=== PATIENT | female | born 1980 | race Caucasian/White ===

== ENCOUNTER 2018-07-05 10:44 | Observation (INO) ==
--- NOTE | 2018-07-04 21:02 | MH ---
cc: Declan Brown MD DATE OF ADMISSION: 07/05/2018 ADMITTING DIAGNOSIS: Dysmenorrhea. CHIEF COMPLAINT: Pelvic pain with large uterine fibroid. HISTORY OF PRESENT ILLNESS: A 38-year-old white female, para 1-0-0-1 with having evaluation for GI issues and low back pain and has reported more back pain and dysmenorrhea with her cycle over the last few months. A pelvic ultrasound on 05/08/2018 showed a large 6.35 cm mass off the fundus of the uterus. Endometrial thickness was normal. Right ovary shows a small cyst. Left ovary shows small cyst. Due to the progressive nature of the back pain refractory to medical therapy, the patient elected to proceed with a hysterectomy. PAST MEDICAL HISTORY: She had in 2008 for failure to progress. MEDICATIONS: Vitamins. ALLERGIES: NONE. TRANSFUSIONS: None. SERIOUS MEDICAL ILLNESSES: History of renal stones in the past. REVIEW OF SYSTEMS: Negative. SOCIAL HISTORY: She is . She works for [employer]. Alcohol, tobacco and drugs are none. FAMILY HISTORY: Noncontributory. REVIEW OF SYSTEMS: Negative. PHYSICAL EXAMINATION: GENERAL: This is a well-nourished, well-developed white female. VITAL SIGNS: Stable. HEENT: Normal. CHEST: Clear. HEART: Regular rate. BREASTS: Symmetrical. ABDOMEN: Benign. PELVIC: Normal external genitalia and BUS. Vagina is normal. Cervix normal. Uterus enlarged, about 14-week size. Adnexa nonpalpable. ASSESSMENT: She is now admitted for laparoscopy with planned LASH procedure, bilateral salpingectomy, possible LILLIANA, possible BSO if indicated. While in the office, the surgery, the risks and benefits and complications were explained and accepted. MD MAITE Dickinson/tylor , 07:33 PM , 07:40 PM
[2018-07-05] MEDS ORDERED: Metoprolol Tartrate 25 MG Tablet PO ONE (11:45)
[2018-07-05] MEDS ORDERED: Chlorhexidine Gluconate 2% 1 Pack (2 Cloths) TOPICAL ONE (11:45)
[2018-07-05] MEDS ORDERED: Sodium Chlor 0.9% Inj 500 ML IV.CONT ONE (11:45)
[2018-07-05] MEDS ORDERED: ceFAZolin 2 GM IV; once IV.SIG ONE (12:00)
[2018-07-05] MEDS ORDERED: Bupivacaine Liposomal PF 1.3% Inj 20 ML Vial ONE (12:42)
[2018-07-05] MEDS ORDERED: Lidocaine PF 1% Inj 5 ML Syringe OTHER ONE (13:00)
[2018-07-05] MEDS ORDERED: Glycopyrrolate Inj 1 MG/5 ML Syringe IV.PUSH ONE (13:00)
[2018-07-05] MEDS ORDERED: Neostigmine Inj 5 MG/5 ML Syringe IV.PUSH ONE (13:00)
[2018-07-05] MEDS ORDERED: fentaNYL Citrate Inj 100 MCG/2 ML Ampul ONE (13:56)
[2018-07-05] MEDS ORDERED: Ketorolac Inj 30 MG/ML (IVP) Vial IV.PUSH ONE (14:00)
[2018-07-05] MEDS ORDERED: Ketorolac Inj 30 MG/ML (IVP) Vial IM ONE (14:00)
[2018-07-05] MEDS ORDERED: HYDROmorphone PF Inj 1 MG/ML Ampul IV.PUSH PRN (14:14)
[2018-07-05] MEDS ORDERED: Zolpidem Tartrate 5 MG Tablet PO PRN (14:14)
[2018-07-05] MEDS ORDERED: *Meperidine Inj 25 MG/ML Vial PERIprocedural Use ONLY ONE (14:44)
--- NOTE | 2018-07-05 14:47 | MP ---
cc: Declan Brown MD DATE OF OPERATION: 07/05/2018 PREOPERATIVE DIAGNOSES: 1. Pelvic pain. 2. Large fibroid. POSTOPERATIVE DIAGNOSES: 1. Pelvic pain. 1. Large fibroid. PROCEDURE PERFORMED: Laparoscopy followed by [facility] with bilateral salpingectomy. ANESTHESIA: General, ET. SURGEON: Declan Brown MD INSIDE UPHOLSTERER: Elena Villarreal ESTIMATED BLOOD LOSS: About 300 mL. FLUIDS: 1 liter crystalloid. OBJECTIVE FINDINGS: Following induction of adequate general endotracheal anesthesia, the patient was prepped and draped supine on the operating table in the dorsal lithotomy position in usual sterile fashion, with the bladder being drained by Schaffer catheterization. The abdomen was opened through a 3 cm curving infraumbilical incision using a knife to cut down through the skin to the fascia. The fascia opened transversely. Rectus muscle split in the midline and the peritoneum opened bluntly. A mini GelPort was placed. Laparoscope inserted. A 5 port placed in the lower quadrant. AirSeal in the right lower quadrant. Uterus was about 14-week size with a large, about 8 cm fundal fibroid, normal tubes, normal ovaries, normal cul-de-sac, normal liver edge, normal appendix. Working first on the left, Harmonic scalpel was used to take the left mesosalpinx, left round ligament, left broad ligament, left-sided bladder flap, and uterine vessels, same on the right. Harmonic scalpel now used to amputate the fundus from the cervix. The pouch inserted and the uterus, tubes extracted through the pouch and the GelPort site without spillage. Irrigation was now performed. No bleeding was evident. Low pressure test with no bleeding. The ureters were inspected for good bilateral peristalsis. The operative sites were coated with Tisseel. GelPort was removed and the peritoneum closed with a running 2-0 Vicryl, the fascia with a running locking stitch of 0-Vicryl, corner and midline tied, subcutaneous closed with 3-0 Vicryl, skin with running subcuticular 3-0 Monocryl. The scope was now reinserted through the lower port and used to inspect the GelPort site which was all closed with no entrapment of tissue. No bleeding in the pelvis. Instruments were removed. Gas allowed to escape. The small ports were closed with 3-0 Monocryl. TAP block will be done by anesthesia. All counts were correct and the patient will be taken to the recovery room. MD MAITE Dickinson/sv , 02:24 PM , 02:31 PM MICAH
[2018-07-05] MEDS: KCL 20 mEq/D5W/NaCl 0.45% Inj 1,000 ML IV.CONT SCH ×2 (14:50→23:27)
[2018-07-05] MEDS ORDERED: KCL 20 mEq/D5W/NaCl 0.45% Inj 1,000 ML ONE (14:54)
[2018-07-05] MEDS ORDERED: *morphine SULFATE 4 MG/ML PERIprocedure ONLY ONE (15:01)
[2018-07-05 15:03] LABS: Hematocrit 36.7 % (35.0-46.0); Hemoglobin 12.9 gm/dL (11.6-15.3); Mean Corpuscular Hemoglobin 30.9 pg (27.0-34.0); Mean Corpuscular Volume 88.4 fL (80.0-100.0); Mean Platelet Volume 9.4 fL (7.0-11.0); Platelet Count 147 th/mm3 (150-450); Red Blood Count 4.16 mil/mm3 (4.00-5.30); Red Cell Distribution Width 13.1 % (11.6-17.2); White Blood Count 10.2 th/mm3 (4.0-11.0)
[2018-07-05] MEDS: Ketorolac Inj 30 MG/ML (IVP) Vial IV.PUSH SCH ×2 (17:21→23:28)
[2018-07-05] MEDS: Docusate Sodium 100 MG Capsule PO SCH (20:21)
[2018-07-06] MEDS: Ketorolac Inj 30 MG/ML (IVP) Vial IV.PUSH SCH (05:46)
[2018-07-06 07:47] LABS: Baso % (Auto) 0.2 % (0.0-2.0); Eos # (Auto) 0.1 th/mm3 (0.0-0.4); Eos % (Auto) 0.7 % (0.0-4.0); Hematocrit 34.7 % (35.0-46.0); Hemoglobin 12.1 gm/dL (11.6-15.3); Lymph # (Auto) 1.9 th/mm3 (1.0-4.8); Lymph % (Auto) 20.8 % (9.0-44.0); Mean Corpuscular HGB Conc 34.8 % (32.0-36.0); Mean Corpuscular Hemoglobin 30.8 pg (27.0-34.0); Mean Corpuscular Volume 88.5 fL (80.0-100.0); Mean Platelet Volume 9.2 fL (7.0-11.0); Mono # (Auto) 1.1 th/mm3 (0.0-0.9); Neut # (Auto) 6.1 th/mm3 (1.8-7.7); Neut % (Auto) 66.3 % (16.0-70.0); Platelet Count 155 th/mm3 (150-450); Red Blood Count 3.92 mil/mm3 (4.00-5.30); Red Cell Distribution Width 13.1 % (11.6-17.2); White Blood Count 9.2 th/mm3 (4.0-11.0)
[2018-07-06] MEDS: KCL 20 mEq/D5W/NaCl 0.45% Inj 1,000 ML IV.CONT SCH ×2 (07:48→08:07)
[2018-07-06 08:07] LABS: Anion Gap 8 meq/L (5-15); Blood Urea Nitrogen 5 mg/dL (7-18); Calcium 8.1 mg/dL (8.5-10.1); Carbon Dioxide 23.2 meq/L (21.0-32.0); Chloride 110 meq/L (98-107); Glomerular Filtration Rate Greater Than 89 mL/min (>89); Glucose,Random 105 mg/dL (74-106); Potassium 4.1 meq/L (3.5-5.1); Sodium 141 meq/L (136-145)
[2018-07-06] MEDS: Docusate Sodium 100 MG Capsule PO SCH (08:09)
[2018-07-06 08:53] VITALS: BP 110/57; PULSE 84; RESP 17; TEMP 97.7; O2SAT 100
== END 2018-07-06 10:35 | disposition home or self-care (01) ==
LOC: HSDC 10:44 → HSDI 10:44 → N07 16:32
PROVIDERS: ADMIT Obstetrics & Gynecology; ATTEND Obstetrics & Gynecology
PROC: LAPLASH (ICD-10-PCS; 2018-07-05 12:50)